=== PATIENT | male | born 1950 | race Caucasian/White ===

== ENCOUNTER 2023-03-06 11:34 | Emergency (ER) | payer OTHER, SELFPAY ==
--- NOTE | ~2023-03-06 | XR_ITS ---
XR foot LT min 3V 03/06/2023 12:13 INDICATION: No known injury. Swelling. PROCEDURE: 4 views left foot COMPARISON: No prior studies for comparison. FINDINGS: Fracture, dislocation or subluxation is not identified. There is a small ossific density garcia perior to the talus, consistent with age-indeterminate avulsion fracture. Lisfranc joint intact. No f ocal soft tissue abnormality. No foreign bodies. IMPRESSION: 1: Age-indeterminate avulsion fracture superior margin of the talus anteriorly, best seen on lateral view. Reviewed, dictated and finalized at location B. [employer]
[2023-03-06 11:58] VITALS: PULSE 76; RESP 16; TEMP 36.2; O2SAT 97
--- NOTE | 2023-03-06 12:24 | ED.LOWEXIN ---
HPI - Extremity Injury (Lower) General Chief Complaint: Extremity Injury, Lower Stated Complaint: Swelling to Left Foot Time Seen by Provider: 03/06/23 12:24 Source: patient Mode of arrival: wheelchair Limitations: no limitations History of Present Illness HPI Narrative: 72 yo M presents with staff from [facility]. The staff report that pt has swelling and bruising to L foot and is limping since yesterday. Unsure of injury. Pt is nonverbal. Normally ambulatory but staff bought in wheelchair today. All systems reviewed and negative except as noted above. Related Data Home Medications Medication Instructions Recorded Confirmed divalproex 500 mg tablet,delayed mg PO 03/06/23 release docusate sodium 100 mg capsule mg PO 03/06/23 donepezil 10 mg tablet mg 03/06/23 famotidine 20 mg tablet mg 03/06/23 loratadine 10 mg tablet mg 03/06/23 memantine 5 mg tablet mg 03/06/23 multivitamin-ferrous tablet PO 03/06/23 fumarate-folic acid 18 mg-400 mcg tablet (Certavite-Antioxidant) risperidone 0.5 mg tablet mg 03/06/23 sertraline 50 mg tablet mg 03/06/23 simvastatin 20 mg tablet mg 03/06/23 tamsulosin 0.4 mg capsule mg PO 03/06/23 trazodone 100 mg tablet mg 03/06/23 Allergies Allergy/AdvReac Type Severity Reaction Status Date / Time [facility] TEST AdvReac Unknown Uncoded 10/31/16 15:02 Review of Systems Review of Systems: CONSTITUTIONAL: Denies fever, chills, or sweats. EYES: Denies visual changes, redness, or discharge. ENT: Denies rhinorrhea, congestion, sore throat, or otalgia. CARDIOVASCULAR: Denies chest pain, palpitations, or edema. RESPIRATORY: Denies cough or dyspnea. GASTROINTESTINAL: Denies abdominal pain, nausea, vomiting, or diarrhea. GENITOURINARY: Denies dysuria or hematuria. SKIN: Denies rash or itching. MUSCULOSKELETAL: Denies back pain, joint pain, or myalgia. Reports bruising and swelling to L foot. NEUROLOGIC: Denies headache, numbness, or weakness. PSYCHIATRIC: Denies anxiety or depression. All other systems reviewed are negative, except as documented in HPI. [facility] Comments At time of signature, agree with nursing past medical, surgical, social and family history. There is no relevant family history pertinent to the presenting complaint. Exam Narrative: GENERAL: This is a well-nourished, well-developed patient, in no apparent distress. HEAD: normocephalic, atraumatic. EYES: PERRL. Sclera clear/white. Vision is grossly intact. EARS: External ears normal NOSE: External nose normal NECK: Neck supple, non-tender without lymphadenopathy, masses or thyromegaly. CARDIOVASCULAR: Regular rate and rhythm without murmurs, gallops, or rubs. RESPIRATORY: Clear to auscultation. Breath sounds equal bilaterally. No wheezes, rales, or rhonchi. SKIN: warm, Dry, intact with no suspicious lesions or rash, good texture and turgor. NEURO: awake, alert, and oriented to person, place and time. There were no obvious focal neurologic abnormalities. EXTREMITIES: tenderness to proximal dorsal aspect of L foot with soft tissue swelling and mild bruising. distal NV intact. no deformity noted. Course Course Level of Care: Express Care Visit Vital Signs Vital signs: Vital Signs Temperature 36.2 C L 03/06/23 11:58 Pulse Rate 76 03/06/23 11:58 Respiratory Rate 16 03/06/23 11:58 Pulse Oximetry 97 03/06/23 11:58 Oxygen Delivery Room Air 03/06/23 11:58 Temperature 36.2 C L 03/06/23 11:58 Pulse Rate 76 03/06/23 11:58 Respiratory Rate 16 03/06/23 11:58 Pulse Oximetry 97 03/06/23 11:58 Oxygen Delivery Room Air 03/06/23 11:58 reviewed. MDM - Extremity Injury (Lower) MDM Narrative Medical decision making narrative: discussed xray results with staff from [facility]. placed in OCL splint by [facility] radiology resident. distal NV intact pre and post procedure. given orthopedic referral for follow up . Patient is aware of diagnosis, understands and agrees to treatm
== END 2023-03-06 12:45 | disposition home or self-care (01) ==
PROVIDERS: Emergency Provider Nurse Practitioner Family
DX: S92.152A Displaced avulsion fracture (chip fracture) of left talus, initial encounter for closed fracture (principal); Z79.899 Other long term (current) drug therapy; Z79.891 Long term (current) use of opiate analgesic; X58.XXXA Exposure to other specified factors, initial encounter
CPT/HCPCS: 29515; 73630; 99204; G0463